=== PATIENT | male | born 1985 | race Caucasian/White ===

== ENCOUNTER 2019-03-15 05:58 | Emergency (ER) | payer OTHER ==
[2019-03-15] MEDS ORDERED: MORPHINE 10 MG/ML VIAL IVP STA (06:09)
[2019-03-15] MEDS ORDERED: SODIUM CHLORIDE 0.9% 1,000 ML IV STA (06:09)
[2019-03-15] MEDS ORDERED: ONDANSETRON 4 MG/2 ML VIAL IVP STA (06:09)
--- NOTE | 2019-03-15 06:12 | ED Physician Documentation ---
History of Present Illness - Stated complaint Stated Complaint: STOMACH PX - Chief complaint Chief Complaint: Abd Pain - Additonal information Additional information: This is a 33-year-old male who presents with epigastric and right lower quadrant pain. Patient states the pain woke him up from sleep around 4 AM this morning and has persisted since then. It is sharp, moderate to severe, and worse with movement. He denies any surgeries on his belly in the past. He vomited one time. He has felt well when he went to bed, and was not having any abdominal pain yesterday. No testicular pain or dysuria. The pain is worse in the RLQ curr ently. No hematuria. Review of Systems Constitutional: denies: Fever Nose: denies: Rhinorrhea / runny nose Cardiac: denies: Chest pain / pressure Respiratory: denies: Dyspnea GI: reports: Abdominal Pain, Vomiting : denies: Dysuria Skin: denies: Rash Neurologic: denies: Generalized weakness Immunocompromised: denies: Immunocompromised PD PAST MEDICAL HISTORY - Past Medical History Past Medical History: No - Past Surgical History Past Surgical History: No - Present Medications Home Medications: Ambulatory Orders Medication Instructions Recorded Confirmed Ondansetron Odt [Zofran] 4 mg TL Q6H PRN #10 tablet 03/15/19 - Allergies Allergies/Adverse Reactions: Allergies Allergy/AdvReac Type Severity Reaction Status Date / Time No Known Drug Allergies Allergy Verified 03/15/19 06:16 - Living Situation Living Arrangement: reports: At home - Social History Does the pt smoke?: Yes Does the pt drink ETOH?: Yes PD ED PE NORMAL - Vitals Vital signs reviewed: Yes - General General: Alert and oriented X 3, Other (Mildly uncomfortable but nontoxic- appearing) - HEENT HEENT: PERRL - Neck Neck: Supple, no meningeal sign - Cardiac Cardiac: RRR, No murmur - Respiratory Respiratory: Clear bilaterally - Abdomen Abdomen: Normal bowel sounds, Soft, Non distended, Other (Focally tender in the right lower quadrant, mildly tender in the epigastrium. No guarding. Negative Mcintosh's sign.) - Derm Derm: Warm and dry - Extremities Extremities: No deformity - Neuro Neuro: Alert and oriented X 3 - Psych Psych: Normal mood, Normal affect Results - Vitals Vitals: Oxygen O2 Source Room air - Labs Labs: Laboratory Tests 03/15/19 03/15/19 03/15/19 06:10 06:10 07:47 WBC 7.5 RBC 5.27 Hgb 15.5 Hct 45.8 MCV 86.9 MCH 29.4 MCHC 33.8 RDW 11.1 L Plt Count 220 MPV 10.2 Neut # (Auto) 4.3 Lymph # (Auto) 2.3 [place] # (Auto) 0.5 Eos # (Auto) 0.3 Baso # (Auto) 0.1 Absolute Nucleated RBC 0.00 Nucleated RBC % 0.0 Sodium 142 Potassium 3.3 L Chloride 102 Carbon Dioxide 30 Anion Gap 10.0 BUN 13 Creatinine 1.1 Estimated GFR (MDRD) 78 L Glucose 139 H Calcium 9.7 Total Bilirubin 1.3 H AST 27 ALT 26 Alkaline Phosphatase 54 Total Protein 8.4 H Albumin 4.8 Globulin 3.6 Albumin/Globulin Ratio 1.3 Lipase 52 H Urine Color YELLOW Urine Clarity CLEAR Urine pH 5.5 Ur Specific [place] <=1.005 Urine Protein NEGATIVE Urine Glucose (UA) NEGATIVE Urine Ketones NEGATIVE Urine Occult Blood NEGATIVE Urine Nitrite NEGATIVE Urine Bilirubin NEGATIVE Urine Urobilinogen 1 (NORMAL) Ur Leukocyte Esterase NEGATIVE Ur Microscopic Review NOT INDICATED Urine Culture Comments NOT INDICATED - Rads (name of study) CT abd/pelvis W Radiology: Other (No acute inflammatory obstructive abnormality identified, appendix is normal. There are some incidental liver lesions which may be further evaluated with MRI as an outpatient.) PD MEDICAL DECISION MAKING - ED course Complexity details: considered differential (Appendicitis, UTI, gastritis, nephrolithasis, pyelonephritis, enteritis, torsion) ED course: Patient presents with right-sided abdominal pain worse in the right lower quadrant. He has no testicular or genital pain or urinary symptoms. Labs are obtained and his CBC is unremarkable, his CMP shows a slightly elevated bilirubin which is consistent with a likely starvation hyperbilirubinemia. His LFTs are normal. CT scan was obtained and shows no acute pathology to explain his discomfort. Does show some incidental liver cysts which were discussed with patient. On repeat examination patient continues to have some mild right-sided abdominal discomfort, no focal right upper quadrant tenderness, and his pain and tenderness is greatly improved from prior. His abdomen is now benign. I discussed the CT scan and the lab results and the diagnostic uncertainty. Given the patient is feeling better he feels comfortable going home at this time. He understands that if he has persistent pain or other new or worsening symptoms she is to return for recheck either here or with his primary care provider in the next 24 hours. Biliary pathology seems less likely at this time given his tenderness is more in his right lower quadrant, and his CT scan did not show any this problems with his gallbladder, but if he has recurrent symptoms I did discuss that a right upper quadrant ultrasound would be reasonable next step. I did prescribe him a small number of Zofran with instructions on their use. Patient agreed this plan and was discharged in good condition. Please note that the temperature from triage is a typo mistake, patient had a normal temperature of 37C. Departure - Departure Disposition: 01 Home, Self Care Clinical Impression: Abdominal pain Qualifiers: Abdominal location: unspecified location Qualified Code(s): R10.9 - Unspecified abdominal pain Condition: Good Instructions: ED Abdominal Pain Unkn Cause Male Follow-Up: Your,PCP [Other] (For follow up if having any residual or persistent symptoms) Prescriptions: Ondansetron Odt [Zofran] 4 mg TL Q6H PRN #10 tablet PRN Reason: Nausea / Vomiting Comments: You were seen today for pain on your right side of your abdomen. Our labs and CT scan did not show any obvious cause of your symptoms at this time, and I am glad that you are feeling better at this time. The CT did show cyst on your liver which should be followed up with an MRI to better characterize them, though I highly doubt these were the cause of your pain today, they appear to be incidental findings. If you have persistent or not improving pain, or any other new or concerning symptoms, please return for recheck in the next 24 hours. You may take the Zofran for nausea. Forms: Activity restrictions Discharge Date/Time: 03/15/19 08:36
[2019-03-15 06:23] LABS: BASOPHILS # (AUTO) 0.1 10^3/uL (0.0-0.1); BASOPHILS % (AUTO) 0.7 %; EOSINOPHILS # (AUTO) 0.3 10^3/uL (0.0-0.7); EOSINOPHILS % (AUTO) 4.2 %; HGB - HEMOGLOBIN 15.5 g/dL (14.0-18.0); LYMPHOCYTES # (AUTO) 2.3 10^3/uL (1.5-3.5); LYMPHOCYTES % (AUTO) 30.7 %; MEAN CORPUSCULAR HEMOGLOBIN 29.4 pg (27.0-31.0); MEAN CORPUSCULAR HGB CONC 33.8 g/dL (32.0-36.0); MEAN CORPUSCULAR VOLUME 86.9 fL (80.0-94.0); MEAN PLATELET VOLUME 10.2 fL (7.4-11.4); MONOCYTES # (AUTO) 0.5 10^3/uL (0.0-1.0); MONOCYTES % (AUTO) 6.7 %; NEUTROPHILS # (AUTO) 4.3 10^3/uL (1.5-6.6); NEUTROPHILS % (AUTO) 57.3 %; PLT - PLATELET COUNT 220 10^3/uL (130-450); RED BLOOD COUNT 5.27 10^6/uL (4.70-6.10); RED CELL DISTRIBUTION WIDTH 11.1 % (12.0-15.0); WHITE BLOOD COUNT 7.5 x10^3/uL (4.8-10.8)
[2019-03-15] MEDS ORDERED: IOVERSOL 320 100 ML VIAL IVP ONE ×2 (06:30→06:57)
[2019-03-15 06:36] LABS: ALBUMIN 4.8 g/dL (3.2-5.5); ALBUMIN/GLOBULIN RATIO 1.3 (1.0-2.2); BILIRUBIN,TOTAL 1.3 mg/dL (0.2-1.0); CALCIUM 9.7 mg/dL (8.5-10.3); CREATININE 1.1 mg/dL (0.6-1.2); TOTAL PROTEIN 8.4 g/dL (6.7-8.2)
--- NOTE | 2019-03-15 08:06 | CT Report ---
Reason: RLQ Abdominal pain, appendicitis suspected Procedure Date: 03/15/2019 Accession Number: [id number] / [id number] Procedure: CT - Abdomen/Pelvis W CPT Code: Final Report FULL RESULT: EXAM: CT ABDOMEN AND PELVIS EXAM DATE: 03/15/2019 06:55 AM. CLINICAL HISTORY: RLQ Abdominal pain, appendicitis suspected. COMPARISONS: None. TECHNIQUE: Routine helical CT imaging was performed through the abdomen and pelvis. IV contrast: 100 cc Optiray 320. Enteric contrast: No. Reconstructions: Coronal and sagittal. In accordance with CT protocol optimization, one or more of the following dose reduction techniques were utilized for this exam: automated exposure control, adjustment of mA and/or KV based on patient size, or use of iterative reconstructive technique. FINDINGS: Lung Bases: Unremarkable. Liver: There is an ovoid hypoenhancing lesion in segment 3 of the liver measuring 1.8 x 1.4 cm (series 3 image 30). There is an ovoid hypoenhancing lesion in segment 7 measuring 1.3 x 0.8 cm (series 3 image 25). There is an ovoid hypoenhancing lesion in segment 6 measuring 1.6 x 1.1 cm (series 3 image 43). The liver is otherwise unremarkable. Gallbladder/Bile Ducts: Unremarkable. Spleen: Splenomegaly is present. The spleen measures up to 19.7 cm in length (series 6 image 21). No focal splenic mass identified. Pancreas: Normal. Adrenal Glands: Normal. Kidneys: Normal. No masses or hydronephrosis. Peritoneal Cavity/Bowel: Normal. No free fluid, free air or adenopathy. No masses or acute inflammatory process. No dilated loops of small bowel or abnormal colonic stool burden. The appendix is well visualized and normal. Pelvic Organs: Normal. The bladder and visualized pelvic organs are within normal limits. Vasculature: No aneurysms or other significant abnormality. Bones: No significant abnormality. Other: None. IMPRESSION: 1. No acute inflammatory or obstructive abnormality identified. The appendix is normal. 2. Splenomegaly. 3. Incidentally noted liver lesions are technically indeterminate. Recommend further evaluation with liver protocol MRI (preferred) or CT, without and with intravenous. This may be performed on a nonemergent basis. Management above is based on recommendations outlined in an ACR White Paper: Claribel Pascual al. Management of Incidental Liver Lesions on CT: A White Paper of the ACR Incidental Findings Committee. [employer] of [employer] 0, (2017). [employer]
[2019-03-15 08:08] LABS: BILIRUBIN,URINE NEGATIVE (NEGATIVE); GLUCOSE, URINE (UA) NEGATIVE (NEGATIVE); KETONES,URINE (UA) NEGATIVE (NEGATIVE); LEUKOCYTE ESTERASE, URINE NEGATIVE (NEGATIVE); NITRITE,URINE NEGATIVE (NEGATIVE); OCCULT BLOOD,URINE NEGATIVE (NEGATIVE); PH,URINE 5.5 PH (5.0-7.5); PROTEIN,URINE NEGATIVE (NEGATIVE); UROBILINOGEN,URINE 1 (NORMAL) E.U./dL (NORMAL)
[2019-03-15 08:16] LABS: CLARITY,URINE CLEAR (CLEAR)
[2019-03-15 08:36] VITALS: BP 140/78
== END 2019-03-15 08:36 | disposition home or self-care (01) ==
LOC: ED 05:58
DX: R10.31 Right lower quadrant pain (principal); R11.10 Vomiting, unspecified; K76.89 Other specified diseases of liver; R16.1 Splenomegaly, not elsewhere classified
CPT/HCPCS: 36415; 74177; 80053; 81003; 83690; 85025; 96361; 96374; 99284; Q9967; 81001; 87086